=== PATIENT | female | born 1955 | race Caucasian/White ===

== ENCOUNTER 2018-08-29 16:49 | Outpatient (CLI) | payer MEDICARE, BC, SELFPAY ==
--- NOTE | 2018-08-29 15:00 | DI.RAD_ITS ---
SYMPTOM/DIAGNOSIS: FELL, RT RIB PAIN, PLEURODYNIA, R07.81 RIGHT RIBS AND PA CHEST: No priors for comparison. Heart size and pulmonary vasculature are within normal limits. The lungs are clear and well expanded. No effusion or pneumothorax is identified. There is a nondisplaced fracture involving the posterior aspect of the right twelfth rib. IMPRESSION: Nondisplaced fracture of the posterior aspect of the right twelfth rib.
== END 2018-08-29 17:09 ==
PROVIDERS: PCP Family Medicine; Visit Provider Nurse Practitioner Family
DX: R07.81 Pleurodynia (principal); S22.31XA Fracture of one rib, right side, initial encounter for closed fracture
CPT/HCPCS: 71046; 71100

== ENCOUNTER 2019-01-16 09:09 | Outpatient (CLI) | payer MEDICARE, BC, SELFPAY ==
[2019-01-16 10:57] LABS: Abs Immature Grans 0.01 k/cumm (0.0-0.09); Absolute Basophil Count 0.01 k/cumm (0.0-0.2); Absolute Eosinophil Count 0.08 k/cumm (0.0-0.7); Absolute Lymphocyte Count 1.46 k/cumm (1.2-3.4); Absolute Monocyte Count 0.31 k/cumm (0.11-0.7); Absolute Neutrophil Count 2.97 k/cumm (1.2-6.7); Basophils % 0.2; Eosinophils % 1.7; HGB 13.1 g/dL (12.0-15.5); Immature Grans % 0.2; Lymphocytes % 30.2; Mean Corp. HGB Concentration 32.8 g/dL (32.0-36.0); Mean Corpuscular Hemoglobin 30.4 pg (27.0-33.0); Mean Corpuscular Volume 92.8 fL (80-95); Mean Platelet Volume 9.7 fL (8.0-11.0); Monocytes % 6.4; Neutrophils % 61.3; Platelet Count 247 x1000/uL (130-400); RBC 4.31 m/cumm (4.00-5.20); RBC Distribution Width 13.2 % (11.7-14.6); White Blood Cell Count 4.84 k/cumm (4.4-10.8)
[2019-01-16 12:50] LABS: Calculated LDL 210 mg/dL; Cholesterol 285 mg/dL (50-200); HDL Cholesterol 61 mg/dL (40-60); TSH 0.98 uIU/mL (0.358-3.74); Triglyceride 70 mg/dL (30-150)
== END 2019-01-16 09:29 ==
PROVIDERS: PCP Family Medicine; Visit Provider Family Medicine
DX: E78.5 Hyperlipidemia, unspecified (principal); R53.83 Other fatigue
CPT/HCPCS: 36415; 80061; 83721; 84443; 85025

== ENCOUNTER 2019-08-22 01:03 | Outpatient (CLI) | payer MEDICARE, BC, SELFPAY ==
--- NOTE | 2019-08-22 13:04 | DI.MAMMO_ITS ---
EXAM: MG MAMMO SCREENING CLINICAL HISTORY: SCREENING Z12.31. TECHNIQUE: Full field digital CC and MLO mammographic images were obtained with 3D tomosynthesis and utilizing computer aided detection (CAD). COMPARISON: . 2012 through 2017 FINDINGS: Breast Density - Category B - Scattered areas of fibroglandular density Masses/Architectural Distortion: None seen. Microcalcifications: No suspicious pleomorphic-type calcifications are seen. Skin Thickening/Nipple Retraction: None. Axilla: Unremarkable. IMPRESSION: 1. BI-RADS category 1, negative. No significant interval change with no specific features of maligna ncy noted. 2. Unless there is more urgent need, screening mammography is recommended, as per [employer] guidelines. A negative radiographic report should not delay biopsy if a dominant or clinically suspicious mass is present. Up to ten percent of cancers are not identified on mammography. A negative report may reinforce clinical impression. Adenosis and dense breasts may obscure an underlying neoplasm. False positive reports average 6 to 10%. Patient will receive a letter notifying them of these results.
== END 2019-08-22 01:23 ==
PROVIDERS: PCP Family Medicine; Visit Provider Family Medicine
DX: Z12.31 Encounter for screening mammogram for malignant neoplasm of breast (principal)
CPT/HCPCS: 77063; 77067

== ENCOUNTER 2019-09-13 02:47 | Outpatient (CLI) | payer MEDICARE, BC, SELFPAY ==
[2019-09-13 12:57] LABS: Calculated LDL 158 mg/dL (<100); Cholesterol 232 mg/dL (<200); HDL Cholesterol 52 mg/dL (40-60); Triglyceride 111 mg/dL (<150)
== END 2019-09-13 03:07 ==
PROVIDERS: PCP Family Medicine; Visit Provider Family Medicine
DX: E78.5 Hyperlipidemia, unspecified (principal)
CPT/HCPCS: 36415; 80061

== ENCOUNTER 2020-01-30 04:12 | Outpatient (CLI) | payer MEDICARE, BC, SELFPAY ==
[2020-01-30 12:40] LABS: ALT 27 U/L (14-59); AST 24 U/L (15-37); Albumin 3.9 g/dL (3.4-5.0); Alkaline Phosphatase 35 U/L (46-116); Anion Gap 6.8 mmol/L (3-11); BUN 18 mg/dL (7-18); Bilirubin, Total 0.4 mg/dL (0.2-1.0); CO2 29.2 mmol/L (21.0-32.0); CREATININE 0.87 mg/dL (0.55-1.02); Calculated LDL 204 mg/dL (<100); Chloride 104 mmol/L (98-107); Cholesterol 287 mg/dL (<200); Glucose 110 mg/dL (74-106); HDL Cholesterol 51 mg/dL (40-60); Potassium 4.3 mmol/L (3.5-5.1); Sodium 140 mmol/L (136-145); Total Protein 6.5 g/dL (6.4-8.2); Triglyceride 160 mg/dL (<150)
[2020-01-30 18:59] LABS: Vitamin D 25 Total 27.7 ng/ml (30-100)
[2020-01-31 10:45] LABS: Lyme Ab w Rflx to Lyme Confirm Negative (Negative)
== END 2020-01-30 04:32 ==
PROVIDERS: PCP Family Medicine; Visit Provider Family Medicine
DX: E84.8 Cystic fibrosis with other manifestations (principal); E78.5 Hyperlipidemia, unspecified; E55.9 Vitamin D deficiency, unspecified; M25.50 Pain in unspecified joint
CPT/HCPCS: 36415; 80053; 80061; 82306; 86618

== ENCOUNTER 2020-02-22 00:58 | Outpatient (CLI) | payer MEDICARE, BC, SELFPAY ==
--- NOTE | 2020-02-22 | DI.RAD_ITS ---
EXAM: XR HIP RT COMPLETE AP PELVIS CLINICAL HISTORY: RT HIP PAIN, NO TRAUMA, M25.551. TECHNIQUE: 2D digital imaging was performed. COMPARISON: No exams were available for comparison FINDINGS: BONES: No acute fracture is present. No bony destructive lesion is seen. Degenerative changes are see n in the lower lumbar spine. JOINTS: No dislocation present. Hips are well maintained. SOFT TISSUE: Normal. IMPRESSION: Unremarkable radiographs of the right hip. Degenerative changes in the lower lumbar spine. DATA REPOSITORY: RADIATION DOSE DELIVERED:
--- NOTE | 2020-02-22 14:50 | DI.DEXA_ITS ---
EXAM: XR DEXA BONE DENSITY W/WO YEN CLINICAL HISTORY: osteoporosis screening,M81.0 TECHNIQUE: COMPARISON: Comparison examination is 06/23/2005. FINDINGS: Lateral Spine Image: Unremarkable. No compression deformities identified. Left hip: Total T-Score: -0.8. Compares with a 0.0 on the prior examination. Total Z-Score: 0.6 T- and Z-scores: Within normal limits. Lumbar Spine: Total T-Score: 1.1. This compares with a 0.7 on the prior examination. Total Z-Score: 2.9. T- and Z-scores: Within normal limits. IMPRESSION: No evidence of osteoporosis.
== END 2020-02-22 01:18 ==
PROVIDERS: PCP Family Medicine; Visit Provider Family Medicine
DX: Z13.820 Encounter for screening for osteoporosis (principal); M25.551 Pain in right hip
CPT/HCPCS: 77080; 73502

== ENCOUNTER 2020-05-01 09:56 | Outpatient (CLI) | payer MEDICARE, BC, SELFPAY ==
--- NOTE | 2020-05-01 12:00 | DI.CT_ITS ---
EXAM: CT BRAIN NECK CTA CLINICAL HISTORY: LOPEZ, rt neck pain, arm numb r/o vertebral disection, R51.9, R20.2. TECHNIQUE: Imaging Protocol: Axial CT angiography was performed with multi-slice acquisition and mu lti-planar and/or 3D reconstructions. CONTRAST MATERIAL: Intravenous: Omnipaque 350 Contrast volume:structured data in ml COMPARISON: No exams were available for comparison FINDINGS: CT Head W/O: Ventricles and Extra axial spaces: Normal in size and morphology for the patient's age. Hemorrhage: None. Cerebral parenchyma: Normal. Midline shift: None. Brainstem/Cerebellum: Normal. Calvarium: Normal. Visualized Paranasal sinuses/Mastoids: Clear. Soft Tissues: Unremarkable. CTA Brain W: Internal Carotid Arteries: Petrous: Normal. Cavernous: Normal. Cerebral: Normal. Middle Cerebral Arteries: Right: No aneurysm, occlusion or significant stenosis. Left: No aneurysm, occlusion or significant stenosis. Anterior Cerebral Arteries: Right: No aneurysm, occlusion or significant stenosis. Left: No aneurysm, occlusion or significant stenosis. Posterior cerebral Arteries: Right: No aneurysm, occlusion or significant stenosis. Left: No aneurysm, occlusion or significant stenosis. Vertebral Arteries: Right: No aneurysm, occlusion or significant stenosis. Left: No aneurysm, occlusion or significant stenosis. Basilar Artery: No aneurysm, occlusion or significant stenosis. CTA Neck W: Common Carotid: Right: No aneurysm, occlusion or significant stenosis. No evidence of dissection. Left: No aneurysm, occlusion or significant stenosis. No evidence of dissection. External Carotid: Right: No aneurysm, occlusion or significant stenosis. Left: No aneurysm, occlusion or significant stenosis. Internal Carotid: Right: No aneurysm, occlusion or significant stenosis. No evidence of dissection. Left: No aneurysm, occlusion or significant stenosis. No evidence of dissection. Vertebral Artery: Right: No aneurysm, occlusion or significant stenosis. No evidence of dissection. Left: No aneurysm, occlusion or significant stenosis. No evidence of dissection. Lung Apices: Normal. Bones: Mild degenerative disc changes from C 3 4 through C5-6. C5-6. Soft Tissues: Normal. IMPRESSION: 1. Normal CTA examination of the [place]. 2. Unremarkable noncontrast CT Head. 3. Normal CTA examination of the neck. No evidence of vertebral dissection. 4. Degenerative changes in the cervical spine. RADIATION DOSE DELIVERED: 1,153.33mGy.cm Total DLP DATA REPOSITORY: All CT scans at this facility are submitted to the National Radiology Data Registry (NRDR) Dose Index Registry (DIR) with the [employer] (ACR). RADIATION OPTIMIZATION: All CT scans at this facility use at least one of these dose optimization te chniques: automated exposure control; mA and/or kV adjustment per patient size (includes targeted exa ms where dose is matched to clinical indication); or iterative reconstruction.
[2020-05-01] MEDS: Normal Saline - Diluent 50 ML VIAL IV (15:31)
[2020-05-01] MEDS: Omnipaque 350 MG/ML 100 ML BTL IJ (15:32)
== END 2020-05-01 10:16 ==
PROVIDERS: PCP Family Medicine; Visit Provider Physician Assistant
DX: R51.9 Headache, unspecified (principal); R20.2 Paresthesia of skin
CPT/HCPCS: 70496; 70498; J3490

== ENCOUNTER 2020-05-06 00:23 | Outpatient (CLI) | payer MEDICARE, BC, SELFPAY ==
--- NOTE | 2020-05-06 10:30 | DI.NM_ITS ---
APPROVED REPORT Exam: Exercise Treadmill Patient Location: Out-Patient Room/Bed: Stress Nurse: Jud Trujillo RN BMI: 22.46 Baseline Rhythm: Sinus Bradycardia Medical History Medical History: HLD. Cardiac Medications: Pravastatin. , Allergies: Simvastatin. Cat Dander. Clams. Cardiac Risk Factors: Hyperlipidemia, Smoking (former) Previous Cardiac Procedures: None. Pretest Chest Pain Characteristics: No chest pain Exercise History: Sedentary Lung Sounds: Clear to auscultation Heart Sounds: Regular Stress Test Details Test: Exercise stress testing was performed using a [place] protocol. Nuclear Acquisition: Rest Tc-99m/Stress Tc-99m 1 day Rest Isotope: Tc-99m Sestamibi. Dose: 11 Date: 05/06/2020 Injection Time: 1045 Stress Isotope: Tc-99m Sestamibi. Dose: 34.5 Date: 05/06/2020 Injection Time: 1254 HR Resting HR Supine: 54 bpm Max Heart Rate (APMHR): 154.160445 bpm Resting HR Standin bpm Target HR (85% APMHR): 130.227710 bpm Max HR Achieved: 188 bpm % of APMHR: 122.08 Recovery HR: 78 bpm HR response to stress: Normal HR response to stress BP Resting BP Supine: 154/80 mmHg Resting BP Standin/88 mmHg Max BP: 196/60 mmHg Recovery BP: 144/74 mmHg BP response to stress: Normal blood pressure response to stress. ECG Resting ECG: Sinus Bradycardia Stress ECG: Sinus Tachycardia ST Change: Horizontal ST depression Lead(s): II, V3, V4, V5 Stage: [address] Deviation: 1 mm Arrhythmia: None. Recovery ECG: Sinus Rhythm Recovery ST Change: Horizontal ST depression, Upsloping ST depression Lead(s): II, V3, V4, V5 Recovery ST Deviation: 1 mm Recovery Arrhythmia: rare PAC Clinical Reason for Termination: Fatigue Stress Symptoms: None. Exercise duration: 12 min37 sec Highest Stage Reached: Stage 5: 5.0 mph at 18% grade. Exercise capacity: 13.89 METs Stress ECG Conclusion 1. The resting electrocardiogram was normal 2. Patient exercised on the [place] protocol and completed a workload of 13.89 METS. There were no sym ptoms to suggest angina 3. Normal heart rate and blood pressure response to exercise. The patient achieved greater than 100% of predicted heart rate for age 4. At peak exercise there was [address] depression noted in leads II, III, aVF, V4 throug h V6 consistent with myocardial ischemia. The EKG had normalized by minute 1 recovery 5. There were no dysrhythmias 6. Burden treadmill score is 8 which is low risk Stress Test Summary STAGE Time (mins) Speed (mph) Grade (%) HR BP SYMPTOMS METS Supine 54 154/80 Standing 61 160/88 1 3 1.7 10 88 162/78 4.6 2 6 2.5 12 107 170/70 7 3 9 3.4 14 133 184/62 10.2 4 12 4.2 16 148 12.9 1 min recovery 133 196/60 3 min recovery 92 178/72 6 min recovery 78 144/74 MPI Conclusion Normal myocardial perfusion without evidence of ischemia or prior infarction. EF was 73% Radiologist Interpretation Radiologist agrees with Director Business Management's Interpretation. Radiologist Interpretation by: Jeronimo Zimmerman MD Interpretation Date/Time: 05/07/2020 09:09:25
== END 2020-05-06 00:43 ==
PROVIDERS: PCP Family Medicine; Visit Provider Physician Assistant
DX: E78.5 Hyperlipidemia, unspecified (principal); Z87.891 Personal history of nicotine dependence; R07.89 Other chest pain
CPT/HCPCS: 78452; 93016; 93018; 93017

== ENCOUNTER → 2020-05-28 12:17 | Outpatient (BNVA) | payer MEDICARE, BC, SELFPAY | PROVIDERS: PCP Family Medicine; Referring Provider Emergency Medicine; Visit Provider Nurse Practitioner Adult Health | DX: G56.01 Carpal tunnel syndrome, right upper limb (principal) | CPT/HCPCS: 95908; 99203 ==

== ENCOUNTER 2020-10-23 03:05 | Outpatient (CLI) | payer MEDICARE, BC, SELFPAY ==
[2020-10-23 12:38] LABS: Anion Gap 6.4 mmol/L (3-11); BUN 17 mg/dL (7-18); CO2 30.6 mmol/L (21.0-32.0); CREATININE 0.8 mg/dL (0.55-1.02); Calcium 8.9 mg/dL (8.5-10.1); Chloride 104 mmol/L (98-107); Glucose 103 mg/dL (74-106); Potassium 4.2 mmol/L (3.5-5.1); Sodium 141 mmol/L (136-145)
[2020-10-23 12:44] LABS: Calculated LDL 88 mg/dL (<100); Cholesterol 160 mg/dL (<200); HDL Cholesterol 56 mg/dL (40-60); Triglyceride 84 mg/dL (<150)
[2020-10-24 05:28] LABS: Vitamin D 25 Total 35.3 ng/mL (30-100)
== END 2020-10-23 03:06 | disposition home or self-care (01) ==
LOC: LOS 03:05
PROVIDERS: Emergency Medicine; PCP Family Medicine; Visit Provider Family Medicine
DX: E78.5 Hyperlipidemia, unspecified (principal); E55.9 Vitamin D deficiency, unspecified
CPT/HCPCS: 36415; 80048; 80061; 82306

== ENCOUNTER 2020-11-05 01:26 | Outpatient (CLI) | payer MEDICARE, BC, SELFPAY ==
--- NOTE | 2020-11-05 12:12 | DI.MAMMO_ITS ---
EXAM: MG MAMMO SCREENING CLINICAL HISTORY: screening,Z12.39 TECHNIQUE: Bilateral full field digital CC and MLO mammographic images were obtained with 3D tomosyn thesis and utilizing computer aided detection (CAD). COMPARISON: Available for comparison. FINDINGS: Masses/Architectural Distortion: None seen. Microcalcifications: No suspicious pleomorphic-type are seen. Skin Thickening/Nipple Retraction: None. IMPRESSION: 1. No significant interval change with no specific features of malignancy noted. 2. Unless there is more urgent need, screening mammography is recommended, as per [employer] guidelines. BI-RADS Category 1 - Negative Breast Density - Category B - Scattered areas of fibroglandular density Breast density category C or D implies that the patient has dense breast tissue. Dense breast tissue is very common and is not abnormal but dense breast tissue can make it harder to find cancer on a ma mmogram. Also, dense breast tissue may increase their breast cancer risk. This information about the result of the mammogram report was provided to the patient to raise their awareness. Use this report when you speak with the patient about their risks for breast cancer, which includes their family hist ory. At that time, you may recommend for more screening tests (Ultrasound or MRI) as they might be us eful based on their risk. A negative radiographic report should not delay biopsy if a dominant or clinically suspicious mass is present. Up to ten percent of cancers are not identified on mammography. A negative report may reinforce clinical impression. Adenosis and dense breasts may obscure an underlying neoplasm. False positive reports average 6 to 10%. Patient will receive a letter notifying them of these results.
== END 2020-11-05 01:46 ==
PROVIDERS: PCP Family Medicine; Visit Provider Family Medicine
DX: Z12.31 Encounter for screening mammogram for malignant neoplasm of breast (principal)
CPT/HCPCS: 77063; 77067

== ENCOUNTER → 2020-12-26 10:58 | Outpatient (BNVA) | payer MEDICARE, BC, SELFPAY | PROVIDERS: PCP Family Medicine; Referring Provider Family Medicine; Visit Provider Student in an Organized Health Care Education/Training Program | DX: M54.12 Radiculopathy, cervical region (principal); Z98.890 Other specified postprocedural states | CPT/HCPCS: 99213 ==

== ENCOUNTER 2021-01-09 02:58 | Outpatient (CLI) | payer MEDICARE, BC, SELFPAY ==
--- NOTE | 2021-01-09 09:28 | DI.MRI_ITS ---
Exam(s) MR CERVICAL SPINE WO EXAM: MR CERVICAL SPINE WO CLINICAL HISTORY: Pain, rt cervical radiculopathy, M54.12 TECHNIQUE: Multiplanar multisequence MRI of the cervical spine was performed without intravenous con trast. COMPARISON: No exams were available for comparison FINDINGS: CERVICOMEDULLARY JUNCTION: Intact with no evidence of cerebellar tonsillar ectopia. No obvious abnor mality of the odontoid process. No evidence of Chiari 1 malformation. CERVICAL SPINAL CORD: There is no abnormal signal in the cervical spinal cord and no evidence of foca l cord atrophy nor focal cord swelling. OSSEOUS:There are no cervical fractures evident. No significant osseous lesions in the cervical vert ebrae. Cervical spine normal curvature is maintained. INDIVIDUAL LEVELS: C2-3: No disc herniation nor central canal stenosis. No foraminal stenosis. No facet arthropathy. C3-4: Relatively preserved disc height and signal. Small bilateral Luschka joint osteophytes. Mild right-sided foraminal stenosis. Left neural foramen unremarkable per. No significant central spinal canal stenosis. C4-5: Normal disc height and signal. Mild annular bulging but no significant disc herniation. No ce ntral spinal canal stenosis.No facet arthropathy. No foraminal stenosis C5-6: Preserved disc height. Mild left-sided annular bulging. No prominent disc herniation. No abraham tral canal stenosis. No facet arthropathy. No significant foraminal stenosis. C6-7: Normal disc height and signal. No disc herniation. No central canal stenosis. No foraminal s tenosis. No facet arthropathy. C7-T1: No disc herniation nor central canal stenosis. No facet arthropathy.No foraminal stenosis. IMPRESSION: 1. Mild multilevel findings but no evidence of prominent disc herniation, central canal stenosis, nor prominent foraminal stenosis. Are only mild facet joint degenerative changes evident. 2. Cervical spinal cord appears unremarkable and there is no evidence of cerebellar tonsillar ectopia . 3. No osseous lesions. Cervical curvature is maintained. DATA REPOSITORY:
== END 2021-01-09 03:18 ==
PROVIDERS: PCP Family Medicine; Visit Provider Student in an Organized Health Care Education/Training Program
DX: M47.22 Other spondylosis with radiculopathy, cervical region (principal)
CPT/HCPCS: 72141

== ENCOUNTER 2021-04-16 02:35 | Outpatient (CLI) | payer MEDICARE, BC, SELFPAY ==
[2021-04-16 12:48] LABS: Calculated LDL 262 mg/dL (<100); Cholesterol 361 mg/dL (<200); HDL Cholesterol 42 mg/dL (40-60); Triglyceride 285 mg/dL (<150)
== END 2021-04-16 02:36 | disposition home or self-care (01) ==
LOC: LOS 02:36
PROVIDERS: PCP Family Medicine; Visit Provider Family Medicine
DX: E78.5 Hyperlipidemia, unspecified (principal)
CPT/HCPCS: 36415; 80061

== ENCOUNTER 2022-04-10 01:23 | Outpatient (CLI) | payer MEDICARE, SELFPAY ==
[2022-04-10 13:51] LABS: Calculated LDL 139 mg/dL (<100); Cholesterol 219 mg/dL (<200); HDL Cholesterol 66 mg/dL (40-60); Triglyceride 70 mg/dL (<150)
[2022-04-13 10:34] LABS: Lyme Ab w Rflx to Lyme Confirm Negative (Negative)
== END 2022-04-10 01:24 | disposition home or self-care (01) ==
LOC: LOS 01:23
PROVIDERS: PCP Family Medicine; Visit Provider Family Medicine
DX: E78.5 Hyperlipidemia, unspecified (principal); Z00.00 Encounter for general adult medical examination without abnormal findings; M25.59 Pain in other specified joint
CPT/HCPCS: 36415; 80061; 86618

== ENCOUNTER → 2022-04-27 00:53 | Outpatient (CLI) | payer MEDICARE, SELFPAY ==
--- NOTE | 2022-04-27 07:32 | DI.MAMMO_ITS ---
Exam(s) MAMMO SCREENING EXAM: MAMMO SCREENING CLINICAL HISTORY: screening Z12.39 TECHNIQUE: Bilateral full field digital CC and MLO mammographic images were obtained with 3D tomosyn thesis and utilizing computer aided detection (CAD). COMPARISON: Available for comparison. FINDINGS: Masses/Architectural Distortion: None seen. Microcalcifications: No suspicious pleomorphic-type are seen. Skin Thickening/Nipple Retraction: None. IMPRESSION: 1. No significant interval change with no specific features of malignancy noted. 2. Unless there is more urgent need, screening mammography is recommended, as per [employer] guidelines. BI-RADS Category 1 - Negative Breast Density - Category B - Scattered areas of fibroglandular density Breast density category C or D implies that the patient has dense breast tissue. Dense breast tissue is very common and is not abnormal but dense breast tissue can make it harder to find cancer on a ma mmogram. Also, dense breast tissue may increase their breast cancer risk. This information about the result of the mammogram report was provided to the patient to raise their awareness. Use this report when you speak with the patient about their risks for breast cancer, which includes their family hist ory. At that time, you may recommend for more screening tests (Ultrasound or MRI) as they might be us eful based on their risk. A negative radiographic report should not delay biopsy if a dominant or clinically suspicious mass is present. Up to ten percent of cancers are not identified on mammography. A negative report may reinforce clinical impression. Adenosis and dense breasts may obscure an underlying neoplasm. False positive reports average 6 to 10%. Patient will receive a letter notifying them of these results.
== END ==
PROVIDERS: PCP Family Medicine; Visit Provider Family Medicine
DX: Z12.31 Encounter for screening mammogram for malignant neoplasm of breast (principal)
CPT/HCPCS: 77063; 77067

== ENCOUNTER → 2022-07-08 01:34 | Outpatient (CLI) | payer MEDICARE, SELFPAY ==
--- NOTE | 2022-07-08 06:30 | DI.CT_ITS ---
Exam(s) CT ABDOMEN PELVIS W EXAM: CT ABDOMEN PELVIS W CLINICAL HISTORY: nausea and epigastric pain,R11.0,R10.13 TECHNIQUE: Imaging Protocol: Axial computed tomography images with coronal and sagittal reformatted images were created and reviewed CONTRAST MATERIAL: Intravenous: Omnipaque 350 Contrast volume:100 mL Oral: Yes COMPARISON: No priors for comparison. FINDINGS: ABDOMEN: Lung Bases: Normal where visualized. Liver: Normal density. There are several round tiny hypodensities in the liver. They are too small f or further characterization, but likely reflect small cysts. No suspicious hepatic masses are seen. Portal, Superior Mesenteric, and Splenic Veins: Unremarkable. Gallbladder and Biliary Tract: No radiodense calculus or dilation. Pancreas: Normal density, no abnormal calcifications or inflammatory process. Spleen: Normal. Adrenals: No masses seen. Kidneys: Normal size, contour and axis. No radiodense stones or obstructive uropathy. There is a 0.8 cm simple cyst in the left kidney. No follow-up is recommended. Abdominal Aorta: Abdominal portion non-dilated. Atherosclerosis is present. Bowel: No obstruction or bowel wall thickening. Appendix is unremarkable. Peritoneal Cavity: No ascites, collection or mesenteric inflammatory response. No free air. Lymph Nodes: Within normal limits. Bones: Within normal limits for the patient's age. Soft Tissues: Unremarkable. PELVIS: Bladder: Symmetric distention, no gross wall thickening. Reproductive Organs: There nodule seen within the uterus likely reflecting fibroids. Lymph Nodes: Within normal limits. Bones: Within normal limits for the patient's age. IMPRESSION: 1. No acute abdominal or pelvic process. 2. Hepatic and renal cysts. RADIATION DOSE DELIVERED: 636.51mGy.cm Total DLP DATA REPOSITORY: All CT scans at this facility are submitted to the National Radiology Data Registry (NRDR) Dose Index Registry (DIR) with the [employer] (ACR). RADIATION OPTIMIZATION: All CT scans at this facility use at least one of these dose optimization te chniques: automated exposure control; mA and/or kV adjustment per patient size (includes targeted exa ms where dose is matched to clinical indication); or iterative reconstruction.
[2022-07-08] MEDS: Barium Sulfate 2% W/V-Berry Smoothie 450 ML BTL 900 ML PO (08:21)
[2022-07-08 09:00] LABS: Abs Immature Grans 0.02 10^3/uL (0.0-0.06); Absolute Basophil Count 0.03 10^3/uL (0.0-0.2); Absolute Eosinophil Count 0.13 10^3/uL (0.0-0.7); Absolute Lymphocyte Count 1.48 10^3/uL (1.2-3.4); Absolute Monocyte Count 0.37 10^3/uL (0.1-0.8); Basophils % 0.6; Eosinophils % 2.4; HGB 12.6 g/dL (11.2-15.7); Immature Grans % 0.4; Lymphocytes % 27.3; MCH 30.7 pg (27.0-33.0); MCHC 33.2 % (32.0-36.0); MCV 93 fL (80-95); Monocytes % 6.8; Neutrophils % 62.5; Platelet Count 247 10^3/uL (130-400); RBC 4.11 10^6/uL (3.93-5.22); RDW 12.8 % (11.7-14.6); RDW-SD 43.4 fL; WBC 5.43 10^3/uL (4.4-10.8)
[2022-07-08 09:34] LABS: ALT 26 U/L (14-59); AST 26 U/L (15-37); Albumin 3.8 g/dL (3.4-5.0); Alkaline Phosphatase 45 U/L (46-116); Anion Gap 3.9 mmol/L (3-11); BUN 11 mg/dL (7-18); Bilirubin, Total 0.6 mg/dL (0.2-1.0); CO2 32.1 mmol/L (21.0-32.0); CREATININE 0.8 mg/dL (0.55-1.02); Calcium 8.5 mg/dL (8.5-10.1); Chloride 104 mmol/L (98-107); Estimated GFR 79.71 (mL/min/1.73m2); Glucose 104 mg/dL (74-106); Lipase 111 U/L (73-393); Potassium 3.7 mmol/L (3.5-5.1); Sodium 140 mmol/L (136-145); Total Protein 6.7 g/dL (6.4-8.2)
[2022-07-08] MEDS: Omnipaque 350 MG/ML 500 ML BTL-Imaging package IJ (10:03)
== END ==
PROVIDERS: PCP Family Medicine; Visit Provider Family Medicine
DX: R10.13 Epigastric pain (principal); R11.0 Nausea; K76.89 Other specified diseases of liver; N28.1 Cyst of kidney, acquired; D25.9 Leiomyoma of uterus, unspecified
CPT/HCPCS: 80053; 83690; 74177; 82565; 85025

== ENCOUNTER → 2022-07-20 10:49 | Outpatient (BNVA) | payer MEDICARE, SELFPAY | PROVIDERS: PCP Family Medicine; Referring Provider Family Medicine; Visit Provider Surgery | DX: R11.2 Nausea with vomiting, unspecified (principal); R10.13 Epigastric pain; Z87.891 Personal history of nicotine dependence | CPT/HCPCS: 99214; 99242 ==

== ENCOUNTER 2022-08-03 01:23 | Outpatient (CLI) | payer MEDICARE, SELFPAY ==
--- NOTE | 2022-08-03 06:30 | DI.US_ITS ---
Exam(s) US ABDOMEN EXAM: US ABDOMEN CLINICAL HISTORY: refractory to PPI's/not related to food,epigastric pain,r10.13,r11.2 TECHNIQUE: Ultrasound abdomen performed using standard protocol. COMPARISON: CT CT ABDOMEN PELVIS W from 07/08/2022 FINDINGS: LIVER: Normal size and echogenicity. Several small cysts are noted. No suspicious liver lesions are seen.. GALLBLADDER: 2 small stones are noted. No evidence of wall thickening. No pericholecystic fluid iden tified. HUERTA'S SIGN: Negative. BILIARY SYSTEM: No intrahepatic or extrahepatic biliary ductal dilation. KIDNEYS: Kidneys are symmetric in size. No convincing renal calculi. No evidence of hydronephrosis. N o renal mass or cyst identified. PANCREAS: Normal where visualized. SPLEEN: Not enlarged. ABDOMINAL AORTA AND IVC: Visualized portions normal caliber. ASCITES: None seen. IMPRESSION: Cholelithiasis. No evidence of gallbladder wall thickening or biliary dilatation. DATA REPOSITORY:
--- NOTE | 2022-08-03 06:30 | DI.RAD_ITS ---
Exam(s) XR CHEST 2V PA LATERAL EXAM: XR CHEST 2V PA LATERAL CLINICAL HISTORY: refractory nausea,h/o smoker,epigastric pain,z87.891,r11.2,r10.13 TECHNIQUE: 2D digital imaging was performed. COMPARISON: CR XR ribs RT PA chest 3V from 08/29/2018 FINDINGS: HEART: Normal size. Aorta: Not dilated. PULMONARY VASCULATURE: Normal. LUNGS: Stable hyperinflation. Clear. PLEURAL SPACE: No pleural effusion or pneumothorax. BONE:Unremarkable for age. IMPRESSION: No acute abnormality. DATA REPOSITORY: RADIATION DOSE DELIVERED:
== END 2022-08-03 01:43 ==
LOC: DI 01:23
PROVIDERS: PCP Family Medicine; Visit Provider Surgery
DX: K80.20 Calculus of gallbladder without cholecystitis without obstruction (principal); Z87.891 Personal history of nicotine dependence
CPT/HCPCS: 71046; 76700

== ENCOUNTER 2022-08-11 06:59 | Day surgery (SDC) | payer MEDICARE, SELFPAY ==
--- NOTE | 2022-08-10 20:27 | W.PM.DSUDISC ---
Date of service: 08/11/22 Time of Service: 08:40 Discharge Plan Disposition Patient Disposition: Home Condition: Good Discharge Details Reason For Visit: EGD Attending Provider: Fortunato Pop Primary Care Provider: Sadia Restrepo Home Meds and New Rx's Prescriptions: New pantoprazole [Protonix] 40 mg tablet,delayed release (DR/EC) 40 mg PO DAILY Qty: 90 3RF Rx Instructions: Take 1 tablet by mouth every day Continued Shingrix (PF) 50 mcg/0.5 mL suspension for reconstitution 0.5 ml IM ONCE Qty: 1 1RF Rx Instructions: as a single dose - repeat in 2 to 6 months zolpidem [Ambien] 5 mg tablet 5 mg PO HS PRN Qty: 30 2RF ondansetron HCl 4 mg tablet 4 mg PO Q6H PRN (Reason: nausea and vomiting) Qty: 10 2RF multivitamin [Daily Multi-Vitamin] 1 EACH tablet 1 ea PO DAILY acyclovir [Zovirax] 5 % cream 1 applic Topical as directed Qty: 5 3RF Rx Instructions: local application every 3 hours as needed/ start as soon as outbreak is felt atorvastatin 20 mg tablet 20 mg PO QHS Qty: 90 3RF Hold Instructions: Home Medication placed on hold at Doctor's office escitalopram oxalate [Lexapro] 10 mg tablet 10 mg PO DAILY Qty: 90 3RF Discharge Instructions Additional Instructions: Terri, we were able to complete your upper endoscopy today without any difficulty. I did multiple biopsies during the course of the procedure. Most importantly, you have some changes in the lower part of your esophagus (in the area called the GE junction) that appear consistent with Dougherty's esophagus. This is typically caused by reflux of gastric acid, and sometimes bile salts, and into the lower esophagus. Proton pump inhibitors have been shown to be the best medical therapy. Therefore, I think we should restart the pantoprazole that you took before. Would like to try at a higher dose than your previous prescription. It will take about a week or so to get the results of the biopsies. We will contact you at that time. I think you will probably need another upper endoscopy within the next 3 years to reassess the area of the GE junction. However, we can tailor that decision based on the biopsy results, as well as her symptoms moving forward. 1. If tolerated, consume a soft, low fiber diet for 1-2 days. 2[address] Do not drive, drink alcohol, operate machinery, make critical decisions, or do activities that require coordination or balance for 24 hours. 3. You may experience a sore throat for 24 to 48 hours. You may use throat lozenges or gargle with warm salt water to relieve the discomfort. 4. Because air was put into your stomach during the procedure, you may experience some belching. 5. Go directly to the emergency room if you notice any of the following: Develop chills (warm to touch), or if you have a thermometer and your temperature is above 101 Difficulty breathing or difficultly swallowing Persistent vomiting Severe abdominal pain, other than gas cramps Severe chest pain Black, tarry stools Any bleeding ? exceeding one tablespoon 6. Call your physician if the site where your intravenous was started becomes red, swollen, painful, and warm to touch. 7. Your physician has reviewed your pre-procedure medications. Please continue to take those medications as previously ordered. You will be given specific information/education regarding any changes to your medications before leaving. Referrals: Tarsha Bynum DO [OSTEOPATHIC DOCTOR] - Activity:: Activity as Tolerated Diet:: As Tolerated Discharge Orders Discharge Orders: Discharge Order (Routine); Ordered 08/10/22 Ordered By: Fortunato Pop DS: Diagnosis Discharge Diagnosis (1) Epigastric pain: Status: Acute Asessment and Plan: Resume pantoprazole, but at 40 mg once a day. Follow-up on biopsy results
--- NOTE | 2022-08-10 20:29 | W.PM.ENDDOP ---
Date of service: 08/11/22 Time of Service: 08:30 Endoscopy Report DATE OF PROCEDURE: 08/11/22 PRE-OP DIAGNOSIS: Abdominal pain POST-OP DIAGNOSIS: other (Dougherty's esophagus) PROCEDURE: EGD with biopsies SURGEON: Fortunato Pop ANESTHESIA TYPE: General:No Airway ESTIMATED BLOOD LOSS: 20 PATHOLOGY: other (Duodenal biopsies, gastric antral biopsies, greater curvature biopsies, GE junction biopsies, lower esophageal biopsies) COMPLICATIONS: None DISPOSITION: same day INDICATIONS: Terri is a 67-year-old woman with midepigastric pain and refractory nausea PROCEDURE START TIME: PROCEDURE END TIME: FINDINGS: Dougherty's esophagus from 35 to 36 cm PROCEDURE DESCRIPTION: After the initiation of monitored anesthetic care, and with the assistance of a bite block, I advanced a standard gastroscope through the mouth past the hypopharynx and into the esophagus.? Under the direct vision of the scope, I advanced down the esophagus into the stomach.? Once I entered the stomach, I performed a brief inspection, followed by retroflexion towards the gastric cardia.? This appeared normal.? After that, I gently advanced the scope around the incisura angularis and examined the pylorus.? This also appeared normal.? Next, I advanced the scope through the pylorus into the duodenum.? The mucosa was pink and healthy appearing.? There were no abnormalities.? I was able to visualize bile draining into the duodenum through the ampulla Vater. I perform random biopsies of the duodenum. ?Next, I began retracting the endoscope.? Once I was back into the stomach, I performed biopsies of the gastric antrum, as well as the greater curvature. I did not see any evidence of ulcers, erythema, or other worrisome mucosal changes. I brought the scope back up to the GE junction. There was short segment Dougherty's esophagus extending from about 35 cm from the incisors down to about 36 cm GE junction. I performed four-quadrant biopsies here.. ?Finally, I withdrew the scope along the length of the esophagus taking great care to examine the entirety of the mucosa.? I did perform some biopsies of normal-appearing lower esophageal mucosa.
[2022-08-11 07:00] VITALS: BP 121/72; PULSE 67; RESP 16; TEMP 36.2; O2SAT 100
[2022-08-11] MEDS: Lactated Ringers 1,000 ML 80 ML IV (07:30)
--- NOTE | 2022-08-11 07:55 | W.ANESPRE ---
General Info Date of Service Date Performed: 08/11/22 Height: 5 ft 3 in Weight: 61.7 kg Body Mass Index (BMI): 24.0 Surgical Procedure: Operation Date: 08/11/22 08:05 Proposed Procedure Side Surgeon p Gastroscopy/ BX Esoph,Stomach,Duodenum Fortunato Pop MD Meds Allergies and Home Medications Allergies Allergy/AdvReac Type Severity Reaction Status Date / Time cat dander Allergy Intermediate Verified 08/11/22 07:15 simvastatin AdvReac JOINT PAIN Verified 08/11/22 07:15 CLAM AdvReac Intermediate STOMACH Uncoded 08/11/22 07:15 PAIN Home Medication Medication Instructions Recorded multivitamin (Daily Multi-Vitamin 1 ea PO DAILY 10/06/12 tablet) acyclovir 5 % topical cream 1 applic topical as directed #5 05/27/21 (Zovirax) grams atorvastatin 20 mg tablet 20 mg PO QHS #90 tabs 10/14/21 Lexapro 10 mg tablet (escitalopram 10 mg PO DAILY #90 tabs 01/05/22 oxalate) varicella-zoster glycoE vacc-[id number] 0.5 ml IM ONCE #1 ea 04/15/22 adj(PF) 50 mcg/0.5 mL IM susp, kit (Shingrix (PF)) zolpidem 5 mg tablet (Ambien) 5 mg PO HS PRN #30 tab-caps 04/15/22 ondansetron HCl 4 mg tablet 4 mg PO Q6H PRN nausea and 07/20/22 vomiting #10 tabs Current Visit Medications: Current Medications Generic Name Dose Route Start Last Admin Trade Name Freq PRN Reason Stop Dose Admin Ringer's Solution 1,000 mls @ 80 mls/hr 08/11/22 06:00 08/11/22 07:30 IV 09/09/22 23:59 80 mls/hr INFUSION BISHOP Administration IV Miscellaneous Supplies 1 each 08/11/22 06:00 Iv Access IV 09/09/22 23:59 DIRECTED BISHOP Sodium Chloride 0 ml 08/11/22 06:00 Normal Saline Flush 10 Ml Syr IV 09/09/22 23:59 PRN PRN Sodium Chloride 0 ml 08/11/22 06:00 Normal Saline 10 Ml Vial IJ 09/09/22 23:59 DIRECTED PRN Sterile Water 0 ml 08/11/22 06:00 Water,Injection,Sterile 10 Ml Vial IJ 09/09/22 23:59 DIRECTED PRN [facility] Active Problems Active Problems: Problem Status Onset Code History of smoking for 2-5 years Z87.891 Epigastric pain R10.13 Refractory nausea and vomiting R11.2 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 Nevus, non-neoplastic I78.1 Hyperlipidemia E78.5 Depressive disorder F32.9 Vitamin D deficiency E55.9 Statin intolerance Z78.9 Nausea alone R11.0 Medical History Medical History Carpal tunnel syndrome of right wrist Closed fracture of tibia and fibula, shaft Epicondylitis bilateral; S/P surgery in 2005 Surgical History Surgical History History of carpal tunnel surgery of left wrist History of section S/P carpal tunnel release S/P tubal ligation Tobacco Smoking/Tobacco Use Status: Former Tobacco Use Passive smoking exposure: Yes Second hand exposure: Yes Alcohol Alcohol Intake: current Alcohol intake frequency: a few times a week Alcohol type: beer and wine Substance Use Substance use: Occasionally Substance use type: marijuana Counseling provided: none Vital Signs and Lab Results Vital Signs Most Recent Vital Signs in EMR: Most Recent Vital Signs Temp Pulse Resp BP Pulse Ox 36.2 C L 67 16 121/72 100 08/11/22 07:00 08/11/22 07:00 08/11/22 07:00 08/11/22 07:00 08/11/22 07:00 Lab Results Blood Type / Crossmatch: No Data to Display Complete Blood Count: No Data to Display Complete Metabolic Panel: No Data to Display Liver Function Panel: No Data to Display Coagulation Panel: No Data to Display Cardiac Panel: No Data to Display Arterial Blood Gas: No Data to Display Venous Blood Gas: No Data to Display Pancreas Panel: No Data to Display Thyroid Panel: No Data to Display Infectious Disease: No Data to Display Blood Cultures: No Data to Display Toxicology Panel: No Data to Display Imaging and Studies Imaging and Studies Study information below may be from another EMR and interpreted by another provider. Please see original notes in EMR for more complete details. EKG Summary: Conclusion Sinus bradycardia...rate< 60 Low voltage, extremity leads...all extremity leads <0.5mV 04/30/20 Stress Test Summary: MPI Conclusion Normal myocardial perfusion without evidence of ischemia or prior infarction. EF was 73% 05/06/20 Anesthesia Assessment and Plan Anesthesia History Personal History: No History of Anesthesia Complications Family History: No Family History of Anesthesia Complications (2020 negative cardiac workup was due to neck pain/headaches) Exercise Tolerance Exercise Tolerance: Metabolic Equivalents>4 Pertinent Negatives Pertinent Negatives: No Symptoms of GERD (No acid but positive for epigastric discomfort. ), No Major Cardiovascular Symptoms or Complaints, No Major Pulmonary Symptoms or Complaints and No History of CVA/TIA Cardiac & Pulmonary Exam Cardiac Exam: Normal S1/S2 Heart Sounds Pulmonary Exam: Clear Bilateral Breath Sounds Implantable Cardiac Device Does patient have a Pacemaker or an ICD?: No Airway Exam Known Difficult Airway: No Mallampati Class: 1 Mouth Opening: Normal (> 3cm) Thyromental Distance: Greater than 3 cm Neck Range of Motion: Full ROM Neck Circumference: Normal Teeth Condition: Normal Dentition (Some missing none loose) ASA Classification ASA Score: ASA 2 Emergency Case?: No NPO Status NPO Status: NPO Clears >2 hours, Solids >8 hours Anesthesia Plan Resuscitation Status: Full Code Anesthesia Technique: General Anesthesia Airway Planned: Natural Airway Monitors Used: Standard Monitors
[2022-08-11 08:03] VITALS: BMI 24.0
--- NOTE | 2022-08-11 08:21 | STOM_PTH ---
PATIENT: Terri Brumfield LOC: [facility] U#:[id number] AGE/SX: 67/F ROOM: RE08/11/[address]: Fortunato Pop MD : 1955 BED: DIS: 08/11/2022 SPEC #: [id number] RECD: 08/11/22 12:39 STATUS: [facility] #: [id number] JARED: 08/11/22 08:[address]: Fortunato Pop DEPT: Surgical Specimen RECD BY: Genny Mendoza ENTERED: 08/11/22 12:40 SP TYPE: STOMACH OTHR DR: Sadia Restrepo Tissues: 1 - BIOPSY BOWEL 2 - STOMACH BIOPSY 3 - STOMACH BIOPSY 4 - ESOPHAGUS BIOPSY 5 - ESOPHAGUS BIOPSY Procedures: GROSS AND MICRO LEVEL 4 Comments: [id number]
[2022-08-11 08:30] VITALS: BP 110/60; PULSE 63; RESP 18; TEMP 36.5; O2SAT 97
[2022-08-11 08:53] VITALS: BP 141/78; PULSE 57; RESP 18; TEMP 36.3; O2SAT 99
--- NOTE | 2022-08-11 09:32 | W.ANESPOSTOP ---
Postoperative Evaluation Date, Time and Location Date Performed: 08/11/22 Time Performed: 08:44 Patient Location: Day Surgery Unit Vital Signs Most Recent Imported Vital Signs: Most Recent Vital Signs Temp Pulse Resp BP Pulse Ox 36.3 C L 57 L 18 141/78 H 99 08/11/22 08:53 08/11/22 08:53 08/11/22 08:53 08/11/22 08:53 08/11/22 08:53 Pain Score Most Recent Pain Score: Most Recent Pain Score Pain Level 0 08/11/22 08:53 Assessment Mental Status: Awake (Alert & Oriented to Patient Baseline) Airway and Respiratory Function: Patent airway with normal (patient baseline) respiratory exam Cardiovascular Function: Hemodynamically Stable Hydration Status: Adequately Hydrated Nausea & Vomiting: No Nausea or Vomiting Pain: Pt. Denies Any Pain Peripheral Nerve Block: Patient did not receive a nerve block
== END 2022-08-11 09:10 | disposition home or self-care (01) ==
PROVIDERS: PCP Family Medicine; Visit Provider Surgery
PROC: 0DJ68ZZ Inspection of Stomach, Via Natural or Artificial Opening Endoscopic (ICD-10-PCS; CPT 43235; principal; 2022-08-11 08:00)
DX: E78.5 Hyperlipidemia, unspecified; R11.0 Nausea; K22.70 Barrett's esophagus without dysplasia; K22.89 Other specified disease of esophagus; K31.89 Other diseases of stomach and duodenum
CPT/HCPCS: 43239; 88305; J2405

== ENCOUNTER → 2022-08-24 09:58 | Outpatient (BNVA) | payer MEDICARE, SELFPAY | PROVIDERS: PCP Family Medicine; Referring Provider Family Medicine; Visit Provider Surgery | DX: Z48.815 Encounter for surgical aftercare following surgery on the digestive system (principal); K22.70 Barrett's esophagus without dysplasia | CPT/HCPCS: 99213 ==

== ENCOUNTER 2022-09-18 07:27 | Day surgery (SDC) | payer MEDICARE, SELFPAY ==
--- NOTE | 2022-09-17 15:52 | W.ANESPRE ---
General Info Date of Service Date Performed: 09/18/22 Height: 5 ft 3 in Weight: 60.328 kg Body Mass Index (BMI): 23.6 Surgical Procedure: Operation Date: 09/18/22 09:40 Proposed Procedure Side Surgeon p Cholecystectomy Laparoscopic, Possible Open Fortunato Pop MD Meds Allergies and Home Medications Allergies Allergy/AdvReac Type Severity Reaction Status Date / Time cat dander Allergy Intermediate Verified 09/18/22 07:47 simvastatin AdvReac JOINT PAIN Verified 09/18/22 07:47 CLAM AdvReac Intermediate STOMACH Uncoded 09/18/22 07:47 PAIN Home Medication Medication Instructions Recorded multivitamin (Daily Multi-Vitamin 1 ea PO DAILY 10/06/12 tablet) acyclovir 5 % topical cream 1 applic topical as directed #5 05/27/21 (Zovirax) grams atorvastatin 20 mg tablet 20 mg PO QHS #90 tabs 10/14/21 Lexapro 10 mg tablet (escitalopram 10 mg PO DAILY #90 tabs 01/05/22 oxalate) varicella-zoster glycoE vacc-[id number] 0.5 ml IM ONCE #1 ea 04/15/22 adj(PF) 50 mcg/0.5 mL IM susp, kit (Shingrix (PF)) zolpidem 5 mg tablet (Ambien) 5 mg PO HS PRN #30 tab-caps 04/15/22 ondansetron HCl 4 mg tablet 4 mg PO Q6H PRN nausea and 07/20/22 vomiting #10 tabs Current Visit Medications: Current Medications Generic Name Dose Route Start Last Admin Trade Name Freq PRN Reason Stop Dose Admin Acetaminophen 1,000 mg 09/18/22 06:00 Acetaminophen 500 Mg Tab PO 09/18/22 23:59 PREOP BISHOP Gabapentin 600 mg 09/18/22 06:00 Gabapentin 300 Mg Cap PO 09/18/22 23:59 PREOP BISHOP Ringer's Solution 1,000 mls @ 80 mls/hr 09/18/22 06:00 IV 09/18/22 23:59 INFUSION BISHOP Cefazolin Sodium/Dextrose 2 gm in 50 mls @ 100 mls/hr 09/18/22 06:00 Ancef Duplex IVPB 09/18/22 23:59 PREOP BISHOP IV Miscellaneous Supplies 1 each 09/18/22 06:00 Iv Access IV 09/18/22 23:59 DIRECTED BISHOP Sodium Chloride 0 ml 09/18/22 06:00 Normal Saline Flush 10 Ml Syr IV 09/18/22 23:59 PRN PRN Sodium Chloride 0 ml 09/18/22 06:00 Normal Saline 10 Ml Vial IJ 09/18/22 23:59 DIRECTED PRN Sterile Water 0 ml 09/18/22 06:00 Water,Injection,Sterile 10 Ml Vial IJ 09/18/22 23:59 DIRECTED PRN PFSH Active Problems Active Problems: Problem Status Onset Code GERD (gastroesophageal reflux disease) K21.9 Gallstones K80.20 History of smoking for 2-5 years Z87.891 Epigastric pain R10.13 Refractory nausea and vomiting R11.2 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 Nevus, non-neoplastic I78.1 Hyperlipidemia E78.5 Depressive disorder F32.9 Vitamin D deficiency E55.9 Statin intolerance Z78.9 Medical History Medical History Carpal tunnel syndrome of right wrist Closed fracture of tibia and fibula, shaft Epicondylitis bilateral; S/P surgery in 2005 Surgical History Surgical History (Updated 09/18/22 @ 07:46 by Hallie Harrison) History of carpal tunnel surgery of left wrist History of section History of esophagogastroduodenoscopy (EGD) S/P carpal tunnel release S/P tubal ligation Tobacco Smoking/Tobacco Use Status: Former Tobacco Use Passive smoking exposure: Yes Second hand exposure: Yes Alcohol Alcohol Intake: current Alcohol intake frequency: a few times a week Alcohol type: beer and wine Substance Use Substance use: Occasionally Substance use type: marijuana Counseling provided: none Vital Signs and Lab Results Vital Signs Most Recent Vital Signs in EMR: Temp Pulse Resp BP Pulse Ox 36.6 C 67 18 121/73 97 09/18/22 07:43 09/18/22 07:43 09/18/22 07:43 09/18/22 07:43 09/18/22 07:43 Lab Results Blood Type / Crossmatch: No Data to Display Complete Blood Count: No Data to Display Complete Metabolic Panel: No Data to Display Liver Function Panel: No Data to Display Coagulation Panel: No Data to Display Cardiac Panel: No Data to Display Arterial Blood Gas: No Data to Display Venous Blood Gas: No Data to Display Pancreas Panel: No Data to Display Thyroid Panel: No Data to Display Infectious Disease: No Data to Display Blood Cultures: No Data to Display Toxicology Panel: No Data to Display Imaging and Studies Imaging and Studies Study information below may be from another EMR and interpreted by another provider. Please see original notes in EMR for more complete details. EKG Summary: Conclusion Sinus bradycardia...rate< 60 Low voltage, extremity leads...all extremity leads <0.5mV 04/30/20 Stress Test Summary: MPI Conclusion Normal myocardial perfusion without evidence of ischemia or prior infarction. EF was 73% 05/06/20 Anesthesia Assessment and Plan Anesthesia History Personal History: No History of Anesthesia Complications Family History: No Family History of Anesthesia Complications Exercise Tolerance Exercise Tolerance: Metabolic Equivalents>4 Cardiac & Pulmonary Exam Cardiac Exam: Normal S1/S2 Heart Sounds Pulmonary Exam: Clear Bilateral Breath Sounds Implantable Cardiac Device Does patient have a Pacemaker or an ICD?: No Airway Exam Known Difficult Airway: No Mallampati Class: 1 Mouth Opening: Normal (> 3cm) Thyromental Distance: Greater than 3 cm Neck Range of Motion: Full ROM Neck Circumference: Normal Teeth Condition: Normal Dentition (Some missing none loose) ASA Classification ASA Score: ASA 2 Emergency Case?: No NPO Status NPO Status: NPO Clears >2 hours, Solids >8 hours Anesthesia Plan Resuscitation Status: Full Code Anesthesia Technique: General Anesthesia Airway Planned: Endotracheal Tube Monitors Used: Standard Monitors Preoperative Comments:: 67 yo female with pain/gallstones for cholecystectomy. Sig PMHx: GERD (on history, but states that it was mostly rebound after coming off of pantoprazole), depression (lexapro), former smoker, occ EtOH/cannabis. Previous Anes: -EGD, prop, natural airway, no issues Plan: GAETT, preop cocktail (ordered by kar).
[2022-09-18] VITALS (10 sets, daily range): BP systolic 121–153; BP diastolic 65–91; PULSE 59–70; RESP 12–31; TEMP 36.6–36.8; O2SAT 93–99; BMI 23.6
--- NOTE | 2022-09-18 05:15 | PDOC.DSDIS_ITS ---
Date of service: 09/18/22 Time of Service: 11:29 Discharge Plan Disposition Patient Disposition: Home Condition: Good Discharge Details Reason For Visit: Cholecystectomy Attending Provider: Fortunato Pop Primary Care Provider: Sadia Restrepo Home Meds and New Rx's Prescriptions: New tramadol 50 mg tablet 50 mg PO Q8H PRN (Reason: pain) Qty: 12 0RF Rx Instructions: Take 1 tablet by mouth up to every 8 hours if needed for severe pain. Do not drive while using this medication. Continued Shingrix (PF) 50 mcg/0.5 mL suspension for reconstitution 0.5 ml IM ONCE Qty: 1 1RF Rx Instructions: as a single dose - repeat in 2 to 6 months zolpidem [Ambien] 5 mg tablet 5 mg PO HS PRN Qty: 30 2RF ondansetron HCl 4 mg tablet 4 mg PO Q6H PRN (Reason: nausea and vomiting) Qty: 10 2RF multivitamin [Daily Multi-Vitamin] 1 EACH tablet 1 ea PO DAILY acyclovir [Zovirax] 5 % cream 1 applic Topical as directed Qty: 5 3RF Rx Instructions: local application every 3 hours as needed/ start as soon as outbreak is felt atorvastatin 20 mg tablet 20 mg PO QHS Qty: 90 3RF Hold Instructions: Home Medication placed on hold at Doctor's office escitalopram oxalate [Lexapro] 10 mg tablet 10 mg PO DAILY Qty: 90 3RF Discharge Instructions Instructions: Laparoscopic Cholecystectomy (GEN) Additional Instructions: He, we were able to remove your gallbladder today without any difficulty. The operation went very smoothly. Follow the instructions attached here. We look forward to seeing you in the office for routine follow-up visit. If you have any problems in the meantime, please feel free to call at any time. 1. Resume all of your medications. 2. Okay to use tylenol and ibuprofen over the counter as needed. Use tramadol as needed for severe pain. 3. Okay to use ice packs and heating pads for your discomfort 4. Leave bandage in place for 24 hours, then remove. 5. Shower with warm soapy water. Pat dry. Use a bandaid if needed to protect your clothing. 6. No soaking or tub baths until I see you in the office. 7. No heavy lifting until I see you in the office. 8. Call the office (or go directly to the emergency room after hours) if you notice any of the following: Develop chills (warm to touch), or if you have a thermometer and your temperature is above 101 Difficulty breathing or difficultly swallowing Persistent vomiting Any bleeding ? exceeding one tablespoon 6. Call your physician if the site where your intravenous was started becomes red, swollen, painful, and warm to touch. Referrals: Fortunato Pop MD [ [facility] STAFF PHYSICIAN] - Activity:: no heavy lifting Remove Dressings/Wound Care:: 24 hours Shower/Bathe:: 24 hours Diet:: As Tolerated Discharge Orders Discharge Orders: Discharge Order (Routine); Ordered 09/18/22 Ordered By: Fortunato Pop DS: Diagnosis Discharge Diagnosis (1) Gallstones: Status: Acute Asessment and Plan: Routine follow-up in the office for postoperative visit
--- NOTE | 2022-09-18 05:19 | ROE_ITS ---
Date of service: 09/18/22 Time of Service: 11:27 Operative Note Operative Note DATE OF PROCEDURE: 09/18/22 PRE-OP DIAGNOSIS: Biliary colic POST-OP DIAGNOSIS: same PROCEDURE: Laparoscopic cholecystectomy SURGEON: Fortunato Pop NON PROFIT FIN[employer]CIAL [employer]ER: Susu Palm ANESTHESIA TYPE: General LMA/ETT Refer to Anesthesia Record ESTIMATED BLOOD LOSS: 50 PATHOLOGY: other (Gallbladder) COMPLICATIONS: None Patient was transported to: PACU Patient's condition: stable Indications: Aurora is a 67-year-old woman with gallstones, and recurrent midepigastric abdominal pain consistent with biliary colic. Procedure Description: After satisfactory induction of general anesthesia, I prepped and draped the abdomen in usual fashion. Next, I began with a periumbilical incision. I dissected down to the fascia and elevated it with Jerrod clamps. I incised it sharply. Next, I passed a 12 mm operating port in the umbilical site. I secured it to the fascia with 0 Vicryl stitches. I then insufflated the peritoneal cavity. Next I inserted a [] scope and examined the underlying viscera. There was no evidence of injury created upon entry. I then placed the patient in some reverse Trendelenburg and left side down positioning. Then, with the assistance of the laparoscope, I used local anesthetic to anesthetize the midepigastric and 2 right upper quadrant port sites. Under the vision of the laparoscope, I passed 3 more 5 mm ports. I then grasped the gallbladder fundus and elevated cephalad. I began by dissecting the gallbladder infundibulum. I worked in a lateral to medial fashion. Once I skeletonized the cystic duct and cystic artery, with a satisfactory critical view of safety, I doubly clipped and divided them. 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 Great care was taken to minimize dissection of the true hepatic artery, and ensure that no blood flow through the artery was compromised. I then used electrocautery to dissect the gallbladder off the gallbladder fossa. I passed the gallbladder into an Endo Catch bag and removed it by way of the umbilical site. I examined the surgical field. It was hemostatic. I then removed the 5 mm ports under the vision of the laparoscope. Finally, I removed the umbilical port site and closed the fascia with Vicryl stitches. Sites were irrigated, and the skin was closed with subcuticular stitches. Bandages were applied, patient was awakened from anesthesia, and transferred to the recovery unit.
[2022-09-18] MEDS: Lactated Ringers 1,000 ML 80 ML IV (08:11)
[2022-09-18] MEDS: Acetaminophen 500 MG TAB 1000 MG PO (08:11)
[2022-09-18] MEDS: Gabapentin 300 MG CAP 600 MG PO (08:12)
[2022-09-18] MEDS: ceFAZolin 2 GM/50 ML BAG IVPB (09:50)
--- NOTE | 2022-09-18 11:15 | GB_PTH ---
PATIENT: Terri Brumfield LOC: [facility] U#:[id number] AGE/SX: 67/F ROOM: RE09/18/[address]: Fortunato Pop MD : 1955 BED: DIS: 09/18/2022 SPEC #: [id number] RECD: 09/18/22 12:19 STATUS: [facility] REQ #: [id number] JARED: 09/18/22 11:[address]: Fortunato Pop DEPT: Surgical Specimen RECD BY: Genny Mendoza ENTERED: 09/18/22 12:19 SP TYPE: GB OTHR DR: Sadia Restrepo Tissues: 1 - GALLBLADDER Procedures: GROSS AND MICRO LEVEL 3 Comments: [id number]
[2022-09-18] MEDS: Bupivacaine 0.25% Pres-Free 30 ML VIAL (11:24)
--- NOTE | 2022-09-18 12:06 | W.ANESPOSTOP ---
Postoperative Evaluation Date, Time and Location Date Performed: 09/18/22 Time Performed: 12:06 Patient Location: PACU Vital Signs Most Recent Imported Vital Signs: Most Recent Vital Signs Temp Pulse Resp BP Pulse Ox 36.8 C 65 21 142/73 H 97 09/18/22 11:53 09/18/22 11:53 09/18/22 11:53 09/18/22 11:53 09/18/22 11:53 Assessment Mental Status: Arousable with meaningful communication Airway and Respiratory Function: Patent airway with normal (patient baseline) respiratory exam Cardiovascular Function: Hemodynamically Stable Hydration Status: Adequately Hydrated Nausea & Vomiting: No Nausea or Vomiting Pain: Pain is tolerable per patient Peripheral Nerve Block: Patient did not receive a nerve block
[2022-09-18] MEDS: HYDROmorphone 2 MG/ML SYR IVP ×2 (12:09→12:24)
[2022-09-18] MEDS: Normal Saline 10 ML VIAL IJ (12:12)
[2022-09-18] MEDS: traMADol 50 MG TAB PO (13:16)
== END 2022-09-18 14:40 | disposition home or self-care (01) ==
PROVIDERS: PCP Family Medicine; Visit Provider Surgery
PROC: 0FT44ZZ Resection of Gallbladder, Percutaneous Endoscopic Approach (ICD-10-PCS; CPT 47562; principal; 2022-09-18 09:30)
DX: K80.10 Calculus of gallbladder with chronic cholecystitis without obstruction (principal)
CPT/HCPCS: 47562; 88304; J0690; J1100; J1170; J1885; J2250; J2405; J2704; J3475

== ENCOUNTER → 2022-10-05 09:20 | Outpatient (BNVA) | payer MEDICARE, SELFPAY | PROVIDERS: PCP Family Medicine; Referring Provider Family Medicine; Visit Provider Surgery | DX: Z48.815 Encounter for surgical aftercare following surgery on the digestive system (principal) ==

== ENCOUNTER 2024-02-21 21:11 | Outpatient (REF) | payer MEDICARE, SELFPAY ==
[2024-02-21 21:33] LABS: Bilirubin Negative (Negative); Blood Small (Negative); Clarity Clear (Clear); Glucose Negative (Negative); Ketones Negative (Negative); Leukocyte Esterase Negative (Negative); Nitrite Negative (Negative); Specific Gravity 1.025 (1.005-1.025); Urobilinogen 0.2 mg/dL (Up to 0.2)
[2024-02-21 21:41] LABS: Bacteria Negative HPF (Negative); C & S Indicated? No; Crystals Negative HPF (Negative); Epithelial Cells Negative HPF (Negative); Mucus Negative (Negative); WBC Negative HPF (0-5)
== END 2024-02-21 21:12 | disposition home or self-care (01) ==
LOC: LBN 21:11
PROVIDERS: PCP Family Medicine; Visit Provider Nurse Practitioner Family
DX: R82.998 Other abnormal findings in urine (principal); R10.30 Lower abdominal pain, unspecified; M54.59 Other low back pain
CPT/HCPCS: 81003; 81015

== ENCOUNTER 2024-02-25 00:31 | Outpatient (CLI) | payer MEDICARE, SELFPAY ==
--- NOTE | 2024-02-25 06:30 | DI.US_ITS ---
Exam(s) US ABDOMEN LIMITED EXAM: US ABDOMEN LIMITED CLINICAL HISTORY: Lower abd pain, right more than left,?Appendicitis,R10.30. TECHNIQUE: Ultrasound was performed using standard protocol. COMPARISON: No exams were available for comparison FINDINGS: Sonographic assessment utilizing grayscale and color Doppler imaging was performed and targeted to th e area of clinical concern. The right lower quadrant was evaluated sonographically. No sonographic evidence of an acute appendic itis is seen. IMPRESSION: No sonographic evidence of an acute appendicitis. If there is continued clinical concern, a CT scan of the abdomen and pelvis is recommended. DATA REPOSITORY:
== END 2024-02-25 00:51 ==
LOC: DI 00:32
PROVIDERS: PCP Family Medicine; Visit Provider Nurse Practitioner Family
DX: R10.30 Lower abdominal pain, unspecified (principal); K37 Unspecified appendicitis
CPT/HCPCS: 76705

== ENCOUNTER 2024-04-28 00:28 | Outpatient (CLI) | payer MEDICARE, SELFPAY ==
--- NOTE | 2024-04-28 07:00 | DI.CT_ITS ---
Exam(s) CT ABDOMEN PELVIS W EXAM: CT ABDOMEN PELVIS W CLINICAL HISTORY: Continued right lower/mid abd pain,hematuria,r31.9,r10.30 TECHNIQUE: Imaging Protocol: Axial computed tomography images with coronal and sagittal reformatted images were created and reviewed. CONTRAST MATERIAL: Intravenous: Omnipaque 350 contrast volume:85 mL Oral: Yes COMPARISON: CT CT ABDOMEN PELVIS W from 07/08/2022 US US ABDOMEN LIMITED from 02/25/2024 FINDINGS: ABDOMEN: Lung Bases: Normal where visualized. Liver: Normal density. There are multiple hypodensities seen in the liver which are stable. These li [place] reflect small cysts. No follow-up is recommended. No suspicious hepatic masses are present. Portal, Superior Mesenteric, and Splenic Veins: Unremarkable. Gallbladder and Biliary Tract: Status post cholecystectomy. No biliary ductal dilatation. Pancreas: Normal density, no abnormal calcifications or inflammatory process. Spleen: Normal. Adrenals: No masses seen. Kidneys: Normal size, contour and axis. No radiodense stones or obstructive uropathy. No masses seen. Abdominal Aorta: Abdominal portion non-dilated. Atherosclerotic calcification is present. Bowel: There is diverticulosis of the colon without evidence of acute diverticulitis. There is mild wall thickening in the proximal small bowel suggesting a nonspecific enteritis. There is no evidence of bowel obstruction. Peritoneal Cavity: No ascites, collection or mesenteric inflammatory response. No free air. Lymph Nodes: Within normal limits. Bones: Within normal limits for the patient's age. Soft Tissues: There is a small fat containing umbilical hernia. There is a small fat containing supr aumbilical hernia in the midline. PELVIS: Bladder: Symmetric distention, no gross wall thickening. Reproductive Organs: Unremarkable as visualized. Lymph Nodes: Within normal limits. Bones: Within normal limits for the patient's age. IMPRESSION: 1. Mild wall thickening seen in the proximal small bowel which can be seen with a nonspecific enterit is. 2. Normal appendix. 3. No evidence of nephrolithiasis or obstructive uropathy. RADIATION DOSE DELIVERED: 299.73mGy.cm Total DLP DATA REPOSITORY: All CT scans at this facility are submitted to the National Radiology Data Registry (NRDR) Dose Index Registry (DIR) with the [employer] (ACR). RADIATION OPTIMIZATION: All CT scans at this facility use at least one of these dose optimization te chniques: automated exposure control; mA and/or kV adjustment per patient size (includes targeted exa ms where dose is matched to clinical indication); or iterative reconstruction.
[2024-04-28 09:52] LABS: CREATININE 0.9 mg/dL (0.55-1.02); Estimated GFR 68.77 (mL/min/1.73m2)
[2024-04-28] MEDS: Barium Sulfate 2% W/V-Berry Smoothie 450 ML BTL PO ×2 (10:46→10:47)
[2024-04-28] MEDS: Omnipaque 350 MG/ML 100 ML BTL 85 ML IJ (11:11)
[2024-04-28] MEDS: Normal Saline - Diluent 50 ML VIAL IJ (11:12)
== END 2024-04-28 00:48 ==
LOC: DI 00:28
PROVIDERS: PCP Family Medicine; Visit Provider Nurse Practitioner Family
DX: R10.30 Lower abdominal pain, unspecified (principal); R31.9 Hematuria, unspecified
CPT/HCPCS: 74177; 82565; J3490

== ENCOUNTER 2024-05-10 00:40 | Outpatient (CLI) | payer MEDICARE, SELFPAY ==
--- NOTE | 2024-05-10 07:15 | DI.MAMMO_ITS ---
Exam(s) MAMMO SCREENING EXAM: MAMMO SCREENING CLINICAL HISTORY: screening,Z12.39 TECHNIQUE: Mammograms were interpreted according to the usual protocol including computer analysis w [employer] CAD system, tomosynthesis and C-view imaging. COMPARISON: 2015 through 2021 FINDINGS: The breasts are composed of scattered fibroglandular densities, Breast Density category B. No suspicious masses or suspicious microcalcifications are seen. No skin thickening or abnormal axillary lymph nodes are seen. There has been no significant change from prior exams. IMPRESSION: BI-RADS Category 1, Negative mammogram Yearly screening mammography is recommended. Breast Density - Category B, scattered fibroglandular densities. A negative radiographic report should not delay biopsy if a dominant or clinically suspicious mass is present. Up to ten percent of cancers are not identified on mammography. A negative report may reinforce clinical impression. Adenosis and dense breasts may obscure an underlying neoplasm. False positive reports average 6 to 10%. Patient will receive a letter notifying them of these results.
== END 2024-05-10 01:00 ==
PROVIDERS: PCP Family Medicine; Visit Provider Family Medicine
DX: Z12.31 Encounter for screening mammogram for malignant neoplasm of breast (principal)
CPT/HCPCS: 77063; 77067

== ENCOUNTER 2025-01-05 14:53 | Outpatient (CLI) | payer MEDICARE, SELFPAY ==
--- NOTE | 2025-01-05 14:45 | RT.EKG_ITS ---
APPROVED REPORT Exam: Resting ECG Reason for Exam: dizziness Patient Location: O HR:63 bpm ECG Measurements Heart Rate 63 AXIS SC 173 P 57 QRSd 96 QRS 31 QT 427 T 60 QTc 438 Conclusion Sinus rhythm...normal P axis, V-rate 50- 99 Borderline low voltage, extremity leads...all extremity leads <0.6mV Otherwise normal ECG
== END 2025-01-05 14:54 | disposition home or self-care (01) ==
LOC: DI.CM 14:54
PROVIDERS: PCP Family Medicine; Visit Provider Physician Assistant
DX: R42 Dizziness and giddiness (principal)
CPT/HCPCS: 93010

== ENCOUNTER 2025-01-05 15:42 | Emergency (ER) | payer MEDICARE, SELFPAY ==
--- NOTE | 2025-01-05 15:30 | RT.EKG_ITS ---
APPROVED REPORT Exam: Resting ECG Reason for Exam: dizziness Patient Location: E HR:62 bpm ECG Measurements Heart Rate 62 AXIS MT 166 P 31 QRSd 75 QRS 5 QT 412 T 33 QTc 419 Conclusion Sinus rhythm 62 normal axis no stemi
[2025-01-05 15:45] VITALS: BP 141/74; PULSE 62; RESP 16; TEMP 36.6; O2SAT 97
--- NOTE | 2025-01-05 16:00 | DI.RAD_ITS ---
Exam(s) XR CHEST 2V PA LATERAL EXAM: XR CHEST 2V PA LATERAL CLINICAL HISTORY: dizziness x 1 month TECHNIQUE: 2D digital imaging was performed. Two views. COMPARISON: CR XR CHEST 2V PA LATERAL from 08/03/2022 FINDINGS: HEART: Normal size. Aorta: Not dilated. PULMONARY VASCULATURE: Normal. MEDIASTINUM: Unremarkable. LUNGS: Clear. PLEURAL SPACE: No pleural effusion or pneumothorax. BONE:Unremarkable for age. SOFT TISSUES: Unremarkable. IMPRESSION: No acute abnormality. DATA REPOSITORY: RADIATION DOSE DELIVERED:
--- NOTE | 2025-01-05 16:11 | DI.CT_ITS ---
Exam(s) CT HEAD WO EXAM: CT HEAD WO CLINICAL HISTORY: dizziness x 1 month. TECHNIQUE: Imaging Protocol: Axial computed tomography images with coronal and sagittal reformatted images were created and reviewed COMPARISON: CT CT BRAIN NECK CTA from 05/01/2020 FINDINGS: Ventricles and Extra axial spaces: Normal in size and morphology for the patient's age. Hemorrhage: None. Cerebral parenchyma: No evidence of acute infarct or mass. Midline shift: None. Brainstem/Cerebellum: Normal. Calvarium: Normal. Visualized Paranasal sinuses:Clear. Mastoids: Clear. Soft Tissues: Unremarkable. ORBITS: Unremarkable. PITUITARY: Not enlarged. IMPRESSION: No acute intracranial process. RADIATION DOSE DELIVERED: Total DLP DATA REPOSITORY: All CT scans at this facility are submitted to the National Radiology Data Registry (NRDR) Dose Index Registry (DIR) with the [employer] (ACR). RADIATION OPTIMIZATION: All CT scans at this facility use at least one of these dose optimization techniques: automated exposure control; mA and/or kV adjustment per patient size (includes targeted exams where dose is matched to clinical indication); or iterative reconstruction.
[2025-01-05 16:32] LABS: Abs Immature Grans 0.02 10^3/uL (0.0-0.06); Absolute Basophil Count 0.04 10^3/uL (0.0-0.2); Absolute Eosinophil Count 0.11 10^3/uL (0.0-0.7); Absolute Lymphocyte Count 1.74 10^3/uL (1.2-3.4); Absolute Monocyte Count 0.36 10^3/uL (0.1-0.8); Absolute Neutrophil Count 4.29 10^3/uL (1.2-6.7); Basophils % 0.6 %; Eosinophils % 1.7 %; HCT 39.9 % (36.0-46.0); HGB 13.2 g/dL (11.2-15.7); Immature Grans % 0.3 %; Lymphocytes % 26.5 %; MCH 30.5 pg (27.0-33.0); MCHC 33.1 % (32.0-36.0); MCV 92 fL (80-95); MPV 8.9 fL (8.0-11.0); Monocytes % 5.5 %; Neutrophils % 65.4 %; Platelet Count 279 10^3/uL (130-400); RBC 4.33 10^6/uL (3.93-5.22); RDW 12.8 % (11.7-14.6); RDW-SD 43.2 fL; WBC 6.56 10^3/uL (4.4-10.8)
--- NOTE | 2025-01-05 16:43 | W.ED.GENAD ---
Discharge Plan Disposition Patient Disposition: Home Condition: Stable Discharge Details Clinical Impression: Dizziness of unknown cause Primary Care Provider: Sadia Restrepo ED Provider: Sg Chu Home Meds and New Rx's Prescriptions: New meclizine 12.5 mg tablet 12.5 mg PO BID-QID PRNQty: 30 0RF Continued triamcinolone acetonide 0.5 % ointment 1 applic topical DAILY PRN (Reason: foot rash) Qty: 15 0RF acyclovir [Zovirax] 5 % cream 1 applic Topical as directed Qty: 5 3RF Rx Instructions: local application every 3 hours as needed/ start as soon as outbreak is felt zolpidem [Ambien] 5 mg tablet 5 mg PO HS PRN Qty: 30 2RF atorvastatin 20 mg tablet 20 mg PO QHS Qty: 90 3RF escitalopram oxalate [Lexapro] 10 mg tablet 10 mg PO DAILY Qty: 90 3RF ondansetron HCl 4 mg tablet 4 mg PO Q6H PRN (Reason: nausea and vomiting) Qty: 10 2RF Discharge Instructions Instructions: Meclizine, Dizziness, Adult ED Additional Instructions: You were seen in the emergency department for your dizziness for the past 2 weeks with some exhaustion, your tick panel is pending as well as monoscreen, please check your portal for these results, your workup is negative for any intracranial mass or bleeding, negative for any strain on the heart, chest x-ray is normal, I am not sure what is causing your dizziness but you had a very mild indication of elevated BUN which could be dehydration, you could be having postural orthostatic hypotension. I do recommend outpatient referrals to neurology for possible outpatient MRI if this does not resolve as well as seeking outpatient visit with cardiology for possible stress test and echocardiogram, please return for any persistent increase in your symptoms especially with fainting, chest pain, shortness of breath. Referrals: Sadia Restrepo MD [Primary Care Provider, Medicine] Discharge Data Discharge Date/Time-TO BE ENTERED AT DEPARTURE: 01/05/25 18:16 HPI General Date/Time Provider Initiated Documentation: 01/05/25 15:49. HPI Narrative: 69 year-old female presents to ED today by POV/ambulating with a chief complaint of dizziness and feeling fatigued, palpitations occasionally with onset for the past two weeks- which is unlike her baseline of daily 2 mile walks. Quality described as shortness of breath on exertion, no radiation to syncope, chest pain, abdominal pain, left arm/jaw/neck/mid-back pain, cough, fever, endorses frequent tick bites. Severity is described as moderate. Palliating factors include nothing specific. Provoking factors include walking. Events leading up to the incident/Associated Symptoms: Patient denies cardiac history. Patient not anticoagulated. Related Data Home Medications ?Medication ?Instructions ?Recorded ?Confirmed acyclovir 5 % topical cream 1 applic topical as directed #5 05/27/21 01/05/25 (Zovirax) grams triamcinolone acetonide 0.5 % 1 applic topical DAILY PRN foot 11/11/22 01/05/25 topical ointment rash #15 grams atorvastatin 20 mg tablet 20 mg PO QHS #90 tabs 07/07/24 01/05/25 zolpidem 5 mg tablet (Ambien) 5 mg PO HS PRN #30 tab-caps 07/07/24 01/05/25 Lexapro 10 mg tablet (escitalopram 10 mg PO DAILY #90 tabs 08/13/24 01/05/25 oxalate) ondansetron HCl 4 mg tablet 4 mg PO Q6H PRN nausea and 10/25/24 01/05/25 vomiting #10 tabs meclizine 12.5 mg tablet 12.5 mg PO BID-QID PRN #30 tabs 01/05/25 Previous Rx's ?Medication ?Instructions ?Recorded acyclovir 5 % topical cream 1 applic topical as directed #5 05/27/21 (Zovirax) grams triamcinolone acetonide 0.5 % 1 applic topical DAILY PRN foot 11/11/22 topical ointment rash #15 grams atorvastatin 20 mg tablet 20 mg PO QHS #90 tabs 07/07/24 zolpidem 5 mg tablet (Ambien) 5 mg PO HS PRN #30 tab-caps 07/07/24 Lexapro 10 mg tablet (escitalopram 10 mg PO DAILY #90 tabs 08/13/24 oxalate) ondansetron HCl 4 mg tablet 4 mg PO Q6H PRN nausea and 10/25/24 vomiting #10 tabs meclizine 12.5 mg tablet 12.5 mg PO BID-QID PRN #30 tabs 01/05/25 Allergies Allergy/AdvReac Type Severity Reaction Status Date / Time cat dander Allergy Intermediate Unknown Verified 01/05/25 15:51 pantoprazole AdvReac Mild rash, Verified 01/05/25 15:51 diarrhea simvastatin AdvReac JOINT PAIN Verified 01/05/25 15:51 CLAM AdvReac Intermediate STOMACH Uncoded 01/05/25 15:51 PAIN General Stated Complaint: Dizzy/Sync RON: 3 Review of Systems All systems reviewed & are unremarkable except as noted in HPI and below Exam Narrative Exam Narrative: GENERAL APPEARANCE: Well-nourished, non-toxic, awake and alert, atraumatic, no acute distress. SKIN: Warm, pink, dry, intact, without rashes/lesions/ulcerations. HEAD: Normocephalic, atraumatic, normal hair distribution for gender/age. EYES: Normal conjunctiva, no exudates on lids/lashes. ENT: Nares patent, no circumoral cyanosis, no facial swelling NECK: Supple, trachea midline, painless cervical ROM. LUNGS/CHEST: Lungs CTA bilaterally, non-labored respirations, normal A/P diameter, symmetrical expansion, no chest wall deformity HEART (CV/PV): Regular rate and rhythm without murmur, no peripheral edema, no JVD. ABDOMEN: Soft, non-distended, no guarding. MSK: Normal ROM, no swelling/deformity to bilateral UEs or LEs, moving all extremities without weakness, no cyanosis, spine midline without tenderness, normal curvature. NEURO: Mental Status AAOx4 - alert to person, place, time, events No facial droop, no forehead involvement. Motor: No focal weakness - strength 5/5 in bilateral UEs and LEs, proximal and distal, symmetric. Sensory: sensation intact to light touch globally. Gait normal: patient ambulated without ataxia into ED room. PSYCH: euthymic, cooperative, pleasant, appropriate speech Course Vital Signs Vital signs: Vital Signs Temperature 36.6 C 01/05/25 15:45 Pulse 62 01/05/25 15:45 Respiratory Rate 16 01/05/25 15:45 Blood Pressure 141/74 H 01/05/25 15:45 Pulse Oximetry 97 01/05/25 15:45 Temperature 36.6 C 01/05/25 15:45 Pulse 62 01/05/25 15:45 Respiratory Rate 16 06/27/25 15:45 Respiratory Effort Normal 01/05/25 16:27 Respiratory Depth Normal 01/05/25 16:27 Respiratory Pattern Normal 01/05/25 16:27 Blood Pressure 141/74 H 01/05/25 15:45 Pulse Oximetry 97 01/05/25 15:45 Pain Level 0 01/05/25 15:45 Lab/Test Results Lab/Test Results: Laboratory Tests Range/Units 01/05/25 16:26 WBC (4.4-10.8) 10^3/uL 6.56 RBC (3.93-5.22) 10^6/uL 4.33 Hgb (11.2-15.7) g/dL 13.2 Hct (36.0-46.0) % 39.9 MCV (80-95) fL 92 MCH (27.0-33.0) pg 30.5 MCHC (32.0-36.0) % 33.1 RDW (11.7-14.6) % 12.8 Plt Count (130-400) 10^3/uL 279 MPV (8.0-11.0) fL 8.9 Immature Gran % % 0.3 Neutrophils % % 65.4 Lymphocytes % % 26.5 Monocytes % % 5.5 Eosinophils % % 1.7 Basophils % % 0.6 Nucleated RBC % (0.0-0.3) % 0.0 Absolute Neutrophils (1.2-6.7) 10^3/uL 4.29 Absolute Lymphocytes (1.2-3.4) 10^3/uL 1.74 Absolute Monocytes (0.1-0.8) 10^3/uL 0.36 Absolute Eosinophils (0.0-0.7) 10^3/uL 0.11 Absolute Basophils (0.0-0.2) 10^3/uL 0.04 Medical Decision Making This dictation utilizes [id number] dictation software and may contain unedited grammatical errors. 69 year-old female presents to ED today by POV/ambulating with a chief complaint of dizziness and feeling fatigued, palpitations occasionally with onset for the past two weeks- which is unlike her baseline of daily 2 mile walks. Quality described as shortness of breath on exertion, no radiation to syncope, chest pain, abdominal pain, left arm/jaw/neck/mid-back pain, cough, fever, endorses frequent tick bites. Severity is described as moderate. Palliating factors include nothing specific. Provoking factors include walking. Events leading up to the incident/Associated Symptoms: Patient denies cardiac history. Patients' medical history: Hyperlipidemia, GERD. Family and social history: Non-smoker, no EtOH use exercises regularly. Pertinent exam findings / vital signs include benign cardiopulmonary exam, neuro intact, benign abdomen, stable vitals. Differential / pathologies of concern include ACS, demand ischemia, pneumonia, walking pneumonia, tickborne illness, intracranial pathology like mass. Diagnostic studies of: - CBC, CMP, magnesium, troponin, BNP, TSH, UA, CT head without, XR chest, EKG. - CBC shows no leukocytosis, no anemia - CMP shows no actionable abnormality- BUN mildly elev at 19 - Troponin negative with reliable onset - BNP within normal limits - TSH within normal limits - Magnesium within normal limits - UA shows trace blood which patient is aware of and has had in the past with nonspecific findings - CT head without acute intracranial process - X-ray chest within normal limits without any pathology seen - EKG sinus rhythm at 62 bpm with normal axis, narrow complex QRS, good R wave progression, no ST or T abnormalities Interventions of: -1L IVF NS. HEART Score LOW Risk- outpatient recommendations for dizziness. SF/[place] syncope LOW. ED Course/Assessment/Plan: 69-year-old healthy female presents with 2 weeks of dizziness and some shortness of breath with exertion, her workup is negative for any cardiac or electrolyte cause, her dizziness is unexplained with no findings on head CT, x-ray chest within normal limits, TSH within normal limits, counseled her that she likely needs a referral to cardiology for baseline cardiac studies to be performed in the next 1 to 3 months with strict return criteria for any acute worsening. Findings not consistent with ACS, pulmonary pathology, intracranial pathology, syncope, arrhythmia, infection. Disposition of Dizziness of Unknown Cause. Patient verbalized understanding of the plan and return to ED criteria and engaged in shared decision making. Medical Records Medical records reviewed: Yes I reviewed the patient's medical records. Imaging Data Radiologic Study: Attestation: I personally reviewed and interpreted this imaging study as follows: Imaging: CT Scan Radiologist's impression: EXAM: CT HEAD WO CLINICAL HISTORY: dizziness x 1 month. TECHNIQUE: Imaging Protocol: Axial computed tomography images with coronal and sagittal reformatted images were created and reviewed COMPARISON: CT CT BRAIN NECK CTA from 05/01/2020 FINDINGS: Ventricles and Extra axial spaces: Normal in size and morphology for the patient's age. Hemorrhage: None. Cerebral parenchyma: No evidence of acute infarct or mass. Midline shift: None. Brainstem/Cerebellum: Normal. Calvarium: Normal. Visualized Paranasal sinuses:Clear. Mastoids: Clear. Soft Tissues: Unremarkable. ORBITS: Unremarkable. PITUITARY: Not enlarged. IMPRESSION: No acute intracranial process. Radiologic Study #2: Attestation: I personally reviewed and interpreted this imaging study as follows: Imaging: X-Ray Radiologist's impression: EXAM: XR CHEST 2V PA LATERAL CLINICAL HISTORY: dizziness x 1 month TECHNIQUE: 2D digital imaging was performed. Two views. COMPARISON: CR XR CHEST 2V PA LATERAL from 08/03/2022 FINDINGS: HEART: Normal size. Aorta: Not dilated. PULMONARY VASCULATURE: Normal. MEDIASTINUM: Unremarkable. LUNGS: Clear. PLEURAL SPACE: No pleural effusion or pneumothorax. BONE:Unremarkable for age. SOFT TISSUES: Unremarkable. IMPRESSION: No acute abnormality. Lab Data Lab results reviewed: Yes I reviewed the patient's lab results. Labs: Laboratory Tests Range/Units 01/05/25 01/05/25 16:26 16:45 WBC (4.4-10.8) 10^3/uL 6.56 RBC (3.93-5.22) 10^6/uL 4.33 Hgb (11.2-15.7) g/dL 13.2 Hct (36.0-46.0) % 39.9 MCV (80-95) fL 92 MCH (27.0-33.0) pg 30.5 MCHC (32.0-36.0) % 33.1 RDW (11.7-14.6) % 12.8 Plt Count (130-400) 10^3/uL 279 MPV (8.0-11.0) fL 8.9 Immature Gran % % 0.3 Neutrophils % % 65.4 Lymphocytes % % 26.5 Monocytes % % 5.5 Eosinophils % % 1.7 Basophils % % 0.6 Nucleated RBC % (0.0-0.3) % 0.0 Absolute Neutrophils (1.2-6.7) 10^3/uL 4.29 Absolute Lymphocytes (1.2-3.4) 10^3/uL 1.74 Absolute Monocytes (0.1-0.8) 10^3/uL 0.36 Absolute Eosinophils (0.0-0.7) 10^3/uL 0.11 Absolute Basophils (0.0-0.2) 10^3/uL 0.04 Sodium (136-145) mmol/L 143 Potassium (3.5-5.1) mmol/L 3.7 Chloride (98-107) mmol/L 105 Carbon Dioxide (21.0-32.0) mmol/L 26.9 Anion Gap (3-11) mmol/L 11.1 H BUN (7-18) mg/dL 19 H Creatinine (0.55-1.02) mg/dL 0.8 Est GFR (CKD-EPI 2020) (mL/min/1.73m2) 78.72 Glucose (74-106) mg/dL 87 Calcium (8.5-10.1) mg/dL 8.9 Magnesium (1.8-2.4) mg/dL 2.1 Total Bilirubin (0.2-1.0) mg/dL 0.5 AST (15-37) U/L 28 ALT (14-59) U/L 36 Alkaline Phosphatase (46-116) U/L 49 Troponin I (<or=51) ng/L 5 NT-Pro-B Natriuret Pep (<300) pg/mL 83 Total Protein (6.4-8.2) g/dL 7.2 Albumin (3.4-5.0) g/dL 4.1 TSH (0.36-3.74) uIU/mL 1.15 Urine Color (Yellow) Yellow Urine Clarity (Clear) Clear Urine pH (5-8) 6.0 Ur Specific [place] (1.005-1.025) 1.025 Urine Protein (Neg-Trace) mg/dL Negative Urine Ketones (Negative) mg/dL Trace H Urine Blood (Negative) Small H Urine Nitrite (Negative) Negative Urine Bilirubin (Negative) Negative Urine Urobilinogen (Up to 0.2) mg/dL 0.2 Ur Leukocyte Esterase (Negative) Negative Urine RBC (0-2) HPF 5-10 H Urine WBC (0-5) HPF Negative Ur Epithelial Cells (Negative) HPF Rare Urine Crystals (Negative) HPF Negative Urine Bacteria (Negative) HPF Negative Urine Mucus (Negative) Trace Ur Culture Indicated? 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 Jorge Hyperlipidemia (Chronic) Depressive disorder (Chronic) Vitamin D deficiency (Acute) Statin intolerance (Acute) Asymmetrical sensorineural hearing loss (Acute) GERD (gastroesophageal reflux disease) (Chronic) Medical History (Updated 01/05/25 @ 18:06 by GAMALIEL Calderón) Hematuria negative CT urogram 2023 Gallstones History of smoking for 2-5 years Carpal tunnel syndrome of right wrist Closed fracture of tibia and fibula, shaft Epicondylitis bilateral; S/P surgery in 2005 Surgical History (Updated 11/11/22 @ 10:47 by Sadia Restrepo MD) S/P laparoscopic cholecystectomy History of esophagogastroduodenoscopy (EGD) History of section S/P tubal ligation S/P carpal tunnel release History of carpal tunnel surgery of left wrist Family History (Updated 05/03/24 @ 11:58 by Sadia Restrepo MD) Mother Depression Hyperlipidemia Diabetes Father , 80 Essential hypertension Personal history of malignant neoplasm COLORECTAL Sister Depression Grandfather Essential hypertension Heart disease Grandfather Essential hypertension Heart disease Brother Depression Sister Hyperlipidemia Sister Essential hypertension Sister Depression Brother Heart disease Hyperlipidemia Social History (Updated 04/27/23 @ 10:04 by Mary Gudino) Smoking/Tobacco Use Status: Former Tobacco Use tobacco type: cigarettes Quit Date: 07/12/17 Pack-years: 10 Tobacco: How many years used: 15 Quit status: has quit before Second Hand Exposure: Yes Smoking risk assessment performed?: Yes Alcohol Intake: current Alcohol Intake frequency: a few times a week Alcohol type: beer and wine Drug use: Occasionally Substance use type: marijuana Counseling given: No Counseling provided: none Adopted: No Caregiver/Support person: No Foster care: No Household members: none Housing: house Number of Children: 2 number of grandchildren: 0 Communication Needs: None and Corrective Lenses Do you need help understanding health information?: Never current occupation: Retired teacher; digital design Pets and animals: Yes Pets and animals: dog(s) Sexually active: No Do you think of yourself as: straight/heterosexual Current gender identity: female What is your relationship status?: How often do you talk on the phone with friends or family?: three or more times per week How often do you get together with friends or relatives?: twice per week How often do you attend jainism or yazidi services?: 1-3 times per year Do you belong to any clubs or organized social groups?: yes Panel score (0-1 are the most socially isolated patients): 2 What type of physical activity do you participate in: walking and other Details: yard work Duration: 45-60 minutes/day Frequency: 5-6 times per week Pam/Bahai: Christianity Special pam needs: No Agree to transfusion: Yes Seatbelt use: always Helmet use: No Drive intox or ride w/intox special needs bus driver: No Working smoke detector in home: Yes Carbon monox detector in home: Yes Firearms in home: Yes Firearms unloaded and locked: Yes Do you feel safe at home: Yes Do you feel safe in your relationship?: Yes
[2025-01-05 16:51] LABS: Bilirubin Negative (Negative); Blood Small (Negative); Clarity Clear (Clear); Glucose Negative (Negative); Ketones Trace mg/dL (Negative); Leukocyte Esterase Negative (Negative); Nitrite Negative (Negative); Specific Gravity 1.025 (1.005-1.025); Urobilinogen 0.2 mg/dL (Up to 0.2)
[2025-01-05 16:56] LABS: ALT 36 U/L (14-59); AST 28 U/L (15-37); Albumin 4.1 g/dL (3.4-5.0); Alkaline Phosphatase 49 U/L (46-116); Anion Gap 11.1 mmol/L (3-11); BUN 19 mg/dL (7-18); Bilirubin, Total 0.5 mg/dL (0.2-1.0); CO2 26.9 mmol/L (21.0-32.0); CREATININE 0.8 mg/dL (0.55-1.02); Calcium 8.9 mg/dL (8.5-10.1); Chloride 105 mmol/L (98-107); Estimated GFR 78.72 (mL/min/1.73m2); Glucose 87 mg/dL (74-106); Magnesium 2.1 mg/dL (1.8-2.4); NT-proBNP 83 pg/mL (<300); Potassium 3.7 mmol/L (3.5-5.1); Sodium 143 mmol/L (136-145); TSH (W/Ref FT4) 1.15 uIU/mL (0.36-3.74); Total Protein 7.2 g/dL (6.4-8.2); Troponin I 5 ng/L (<or=51)
[2025-01-05 16:57] LABS: Bacteria Negative HPF (Negative); C & S Indicated? No; Crystals Negative HPF (Negative); Epithelial Cells Rare HPF (Negative); Mucus Trace (Negative); WBC Negative HPF (0-5)
[2025-01-05] MEDS: Normal Saline 1,000 ML 1000 ML IV (17:29)
[2025-01-05 18:28] LABS: Mono Screening Negative (Negative)
[2025-01-08 11:10] LABS: Lyme Ab w Rflx to Lyme Confirm Negative (Negative)
[2025-01-09 21:20] LABS: Anaplasma phagocytophilum Negative (Negative); B. miyamotoi PCR Negative (Negative); Babesia divergens/MO-1 Negative (Negative); Babesia duncani Negative (Negative); Babesia microti Negative (Negative); Ehrlichia chaffeensis Negative (Negative); Ehrlichia ewingii/canis Negative (Negative); Ehrlichia muris eauclairensis Negative (Negative)
== END 2025-01-05 18:16 | disposition home or self-care (01) ==
PROVIDERS: Emergency Provider Physician Assistant; PCP Family Medicine
DX: R42 Dizziness and giddiness (principal); R53.83 Other fatigue; E78.5 Hyperlipidemia, unspecified; Z87.891 Personal history of nicotine dependence
CPT/HCPCS: 80053; 87798; 93005; 99285; 70450; 71046; 81003; 81015; 83735; 83880; 84443; 84484; 85025; 86308; 86618; 93010; 99284

== ENCOUNTER 2025-04-30 02:09 | Outpatient (CLI) | payer MEDICARE, SELFPAY ==
[2025-04-30] MEDS: Normal Saline Flush 10 ML SYR IVP (09:13)
[2025-04-30] MEDS: Gadoterate meglumine 20 ML SYRINGE IVP (09:13)
--- NOTE | 2025-04-30 09:45 | DI.MRI_ITS ---
Exam(s) MR IAC BRAIN WO/W EXAM: MR IAC BRAIN WO/W CLINICAL HISTORY: dizziness, tinnitus,asymmetric sn hearing loss,bilat. TECHNIQUE: Multiplanar multisequence MRI of the brain and internal auditory canals was performed. CONTRAST MATERIAL: IV Contrast: 11 mL of Dotarem contrast administered. COMPARISON: CT CT BRAIN NECK CTA from 05/01/[address] HEAD WO from 01/05/2025 FINDINGS: VENTRICLES AND EXTRA AXIAL SPACES: Normal in size and morphology for the patient's age. HEMORRHAGE: None. CEREBRAL PARENCHYMA: No focus of restricted diffusion to suggest acute infarct. No space-occupying lesion identified. There are multiple areas of hyperintense signal seen in the white matter on the T2 and FLAIR images most consistent with chronic microvascular ischemic disease. MIDLINE SHIFT: None. BRAINSTEM/CEREBELLUM: Normal. CALVARIUM: Normal. ENHANCEMENT: No suspicious enhancement identified. VISUALIZED PARANASAL SINUSES/MASTOIDS: Clear. RED DEVIL OF SHINE: Normal flow void. PITUITARY GLAND: Unremarkable. IAC/CP ANGLE: The internal auditory canals are within normal limits. The cerebellar pontine angles are unremarkable. No enhancing lesions are seen. Visualized portion of the facial nerves appear within normal limits. OTHER FINDINGS: None. IMPRESSION: 1. No evidence of an intracranial mass or enhancing lesion. 2. Age-related chronic microvascular ischemic disease. 3. No evidence of an acute infarct. DATA REPOSITORY:
== END 2025-04-30 02:29 ==
LOC: DI 02:09
PROVIDERS: PCP Family Medicine; Visit Provider Registered Nurse Maternal Newborn
DX: R42 Dizziness and giddiness (principal); H90.3 Sensorineural hearing loss, bilateral; H93.13 Tinnitus, bilateral
CPT/HCPCS: 70553

== ENCOUNTER 2025-05-16 09:37 | Outpatient (CLI) | payer MEDICARE, SELFPAY ==
[2025-05-16 13:06] LABS: Cholesterol 297 mg/dL (<200); HDL Cholesterol 49 mg/dL (>or=50)
== END 2025-05-16 09:38 | disposition home or self-care (01) ==
LOC: LOS 09:38
PROVIDERS: PCP Family Medicine; Visit Provider Family Medicine
DX: Z13.6 Encounter for screening for cardiovascular disorders (principal); E78.00 Pure hypercholesterolemia, unspecified; Z91.89 Other specified personal risk factors, not elsewhere classified
CPT/HCPCS: 36415; 80061; 83695